=== PATIENT | female | born 1945 | race Caucasian/White ===

== ENCOUNTER → 2017-03-03 | Outpatient (CLI) | payer OTHER ==
[~2017-03-03] VITALS: Ht 160 cm; Wt 59.9 kg
[~2017-03-03] MED LIST: ALLEGRA180 MG PO; ASPIRIN EC81 M1 PO; ASPIRIN81 M2 PO; BIOTIN0.5 GM; CIPROFLOXACIN500 M1 PO; DOXYCYCLINE 10100 MG PO; FISH OIL 1,001000 M2 PO; FLAGYL500 MG PO; FLEXERIL PO; HAIR, SKIN & N1 EAC3 PO; LEVAQUIN 500 M500 M1 PO; LISINOPRIL20 MG PO; NORCO 5-325 TA1 EACH PO; OMEPRAZOLE 20 M20 M1 PO; PHILLIPS' COLO1 EACH PO; PREMARIN0.3 MG PO; RESTASIS1 EACH OPHTHALMIC; SIMVASTATIN40 MG PO; SPIRIVA INH; ULTRAM 50MG TAB50 MG PO; VENTOLIN HFA 1818 GM INH; ZOCOR 20 MG TAB20 M1 PO
--- NOTE | ~2017-03-03 | P ---
[facility] [place] [address] PROCEDURE REPORT Name: MIRELLA BRUNER Room #: REG [facility]#: [id number] Admission: 03/03/17 Attend Phys: Eric Kaiser Discharge: Date of : 47 Report #: [id number] THIS REPORT FOR: //name// CC: Eric Epps MD DATE OF SERVICE: 03/03/2017 PROCEDURE PERFORMED: Colonoscopy with biopsies. HISTORY OF PRESENT ILLNESS: The patient is a 71-year-old female with a history of mid epigastric abdominal pain. Upper endoscopy was just performed, which showed grade A erosive esophagitis with mild gastritis and a few gastric erosions. The patient has a history of colon polyps, last colonoscopy 2009. Plan is for colonoscopy. DESCRIPTION OF PROCEDURE: The risks and benefits of the procedure were explained to the patient, those risks including but not limited to bleeding, perforation, the risk of sedation. She understood these risks and gave informed consent. Sedation was given using propofol per anesthesia. Next, a digital rectal exam was initially performed, which was normal. Next, using a standard Gini.netinon colonoscope, the scope was placed in the patient's anus and advanced under direct vision to the cecum. The overall prep was good. The cecum and ileocecal valve were normal in appearance. The ascending, transverse and descending colon were normal. Multiple diverticula were noted in the sigmoid colon. Also noted were 2 small 3 mm sessile polyps, both removed with cold forceps. The rectal mucosa was normal. On retroflexion, no abnormalities were noted. The scope was then withdrawn and the procedure terminated. The patient tolerated the procedure well. IMPRESSION: 1. Two small colonic polyps. 2. Sigmoid diverticulosis. 3. Otherwise, normal colonoscopy. RECOMMENDATIONS: 1. Await biopsy results. 2. The patient had noted mild constipation complaints, I recommended a trial of daily MiraLax. [facility] [address] [place] [address] PROCEDURE REPORT Name: MIRELLA BRUNER Room #: [facility]#: [id number] Admission: 03/03/17 Attend Phys: Eric Kaiser Discharge: Date of : 47 Report #: [id number] Thank you for allowing me to participate in her care. By: [id number] Eric Fishman MD /nt
--- NOTE | ~2017-03-03 | P ---
[facility] [place] [address] PROCEDURE REPORT Name: MIRELLA BRUNER Room #: REG [facility]#: [id number] Admission: 03/03/17 Attend Phys: Eric Kaiser Discharge: Date of : 47 Report #: [id number] THIS REPORT FOR: //name// CC: Eric Epps MD DATE OF SERVICE: 03/03/2017 PROCEDURE PERFORMED: Upper endoscopy with biopsies. HISTORY OF PRESENT ILLNESS: The patient is a 71-year-old female with a history of mid epigastric abdominal pain, intermittent heartburn symptoms. She is scheduled for EGD and colonoscopy today. She also has some low crampy abdominal pain and history of polyps. She takes an aspirin on a regular basis. She began taking omeprazole 20 mg per trial basis for 10 days and did have some improvement in her symptoms. She denies any dysphagia or odynophagia. She denies any nausea or vomiting. DESCRIPTION OF PROCEDURE: The risks and benefits of the procedure were explained to the patient, those risks including but not limited to bleeding, perforation, the risk of sedation. She understood these risks and gave informed consent. Sedation was given using propofol per anesthesia. Next, using a standard Careemn upper endoscope, the scope was placed in the patient's mouth and advanced under direct vision through the esophagus, stomach and into the second portion of the duodenum. The upper and mid esophagus was normal in appearance. In the distal esophagus, there was evidence of grade A erosive esophagitis. Upon entering the stomach, a small hiatal hernia was noted. There was a mild gastritis noted in the distal body and antrum with several small no evidence of bleeding or ulceration. Biopsies were obtained to rule out H. pylori. The pylorus was normal and patent. The duodenal bulb, first and second portion were all normal. Random biopsies were also obtained to rule out the possibility of celiac sprue. The scope was then withdrawn and the procedure terminated. The patient tolerated the procedure well. IMPRESSION: 1. Mild grade A erosive esophagitis. 2. Small hiatal hernia. 3. Mild gastritis with several gastric erosions. 4. Otherwise, normal upper endoscopy. RECOMMENDATIONS: 1. Await biopsy results. 2. Would recommend daily PPI therapy. 3. We will proceed with colonoscopy next today. [address] [address] PROCEDURE REPORT Name: MIRELLA BRUNER Room #: REG [facility]#: [id number] Admission: 03/03/17 Attend Phys: Eric Kaiser Discharge: Date of : 47 Report #: [id number] Thank you for allowing me to participate in her care. By: [id number] [id number] Eric Fishman MD /nt
== END ==
LOC: GI 08:41
DX: D12.5 Benign neoplasm of sigmoid colon (principal); K21.0 Gastro-esophageal reflux disease with esophagitis; K22.10 Ulcer of esophagus without bleeding; K29.60 Other gastritis without bleeding; K57.30 Diverticulosis of large intestine without perforation or abscess without bleeding; I10 Essential (primary) hypertension; K25.9 Gastric ulcer, unspecified as acute or chronic, without hemorrhage or perforation; E11.9 Type 2 diabetes mellitus without complications; J43.9 Emphysema, unspecified; K44.9 Diaphragmatic hernia without obstruction or gangrene; Z87.891 Personal history of nicotine dependence
CPT/HCPCS: 62110; 62900

== ENCOUNTER 2017-06-08 06:10 | Emergency (ER) | payer OTHER ==
[~2017-06-08] VITALS: Ht 157.5 cm; Wt 60.3 kg
--- NOTE | ~2017-06-08 | EKG ---
[address] [place] [employer] [place] [address] ELECTROCARDIOGRAM REPORT Name: MIRELLA BRUNER Room #: [facility]#: [id number] Admission: 06/08/17 Attend Phys: Discharge: 06/08/17 Date of : 47 Report #: [id number] THIS REPORT FOR: //name// [facility] ED Test Date: 2017-06-08 Test Time: 07:16:59 Pat Name: MIRELLA BRUNER Department: Room: Gender: F Mobile Therapist: : 1945 Requested By: Jose Lopez Order Number: [id number] MD: Ken Lockhart Measurements Intervals [place] Rate: 106 P: 70 VT: 176 QRS: 28 QRSD: 72 T: 13 QT: 361 QTc: 480 Interpretive Statements Sinus tachycardia Nonspecific ST segment abnormality Compared to ECG 04/19/2011 07:21:58 T-wave abnormality now present Electronically Signed On 06-08-2017 17:56:08 CDT by Ken Lockhart [email or web address] <ELECTRONICALLY SIGNED> By: Ken Lockhart MD, [facility] 06/08/17 1756 0716 5 Ken Lockhart MD, [facility] /EPI
[2017-06-08 07:32] LABS: URINE BILIRUBIN NEGATIVE (Negative); URINE BLOOD TRACE (Negative); URINE COLOR YELLOW; URINE GLUCOSE-RANDOM* NEGATIVE (Negative); URINE KETONES NEGATIVE (Negative); URINE LEUKOCYTES-REFLEX NEGATIVE (Negative); URINE PROTEIN (DIPSTICK) NEGATIVE (Negative); URINE UROBILINOGEN 0.2 E.U./dl (0.2-1.0)
[2017-06-08 07:32] LABS: ABSOLUTE NEUTROPHILS 9.8 thou/uL (1.4-8.2); BASOPHILS 0.2 % (0.0-2.0); HEMATOCRIT 42.9 % (37.0-47.0); HEMOGLOBIN 14.9 gm/dL (12.0-15.0); LYMPHOCYTES 10.3 % (24.0-44.0); MCH 30.8 pg (26.0-34.0); MCHC 34.8 g/dL (28.0-37.0); MCV 88.5 fL (80.0-100.0); MONOCYTES 4.7 % (1.0-8.0); PLATELET COUNT 163 thou/uL (150-400); POLYS 84.8 % (36.0-66.0); RBC 4.84 mil/uL (4.20-5.00); RDW 12.8 % (10.5-14.5); WBC 11.5 thou/uL (4.0-11.0)
[2017-06-08 07:35] LABS: MANUAL DIFF NO
[2017-06-08 07:47] LABS: ANION GAP 8 mmol/L (7-16); BUN 14 mg/dL (7-18); CALCIUM 9.3 mg/dL (8.5-10.1); CHLORIDE 104 mmol/L (98-107); CO2 27 mmol/L (21-32); CREATININE 0.8 mg/dL (0.6-1.0); GLUCOSE 142 mg/dL (74-106); SODIUM 139 mmol/L (136-145)
[2017-06-08 07:56] LABS: ALBUMIN 3.8 g/dL (3.4-5.0); ALKALINE PHOSPHATASE 67 U/L (46-116); SGOT 27 U/L (15-37); SGPT 21 U/L (30-65); TOTAL BILIRUBIN 0.6 mg/dL (<0.1-1.0); TOTAL PROTEIN 7.4 g/dL (6.4-8.2); TROPONIN-I < 0.04 ng/mL (<0.04-0.07)
[2017-06-08] MEDS ORDERED: TRAMADOL 50 MG50 MG PO (08:18)
[2017-06-08] MEDS ORDERED: ZOFRAN ODT8 MG PO (08:18)
== END 2017-06-08 09:31 ==
LOC: ER 06:10
PROVIDERS: Emergency Medicine
DX: R11.2 Nausea with vomiting, unspecified (principal); R19.7 Diarrhea, unspecified; R10.30 Lower abdominal pain, unspecified; J44.9 Chronic obstructive pulmonary disease, unspecified; I10 Essential (primary) hypertension; E78.00 Pure hypercholesterolemia, unspecified; K21.9 Gastro-esophageal reflux disease without esophagitis; Z90.710 Acquired absence of both cervix and uterus; Z88.1 Allergy status to other antibiotic agents; Z88.6 Allergy status to analgesic agent

== ENCOUNTER 2017-06-08 19:22 | Inpatient (IN) | payer OTHER ==
[~2017-06-08] VITALS: Ht 157.5 cm; Wt 60.9 kg
--- NOTE | ~2017-06-08 | EKG ---
[address] [place] [address] ELECTROCARDIOGRAM REPORT Name: MIRELLA BRUNER Room #: 446-[facility] .R.#: [id number] Admission: 06/08/17 Attend Phys: Emil Smalls DO Discharge: 06/13/17 Date of : 47 Report #: [id number] THIS REPORT FOR: //name// [facility] Test Date: 2017-06-11 Test Time: 21:33:11 Pat Name: MIRELLA BRUNER Department: Room: 44[facility] Gender: F Cartridge Filler: Carisa STODDARD : 1945 Requested By: Yoselin Cantrell Order Number: [id number] MD: Ken Lockhart Measurements Intervals [place] Rate: 135 P: 83 WA: 156 QRS: 43 QRSD: 65 T: -58 QT: 283 QTc: 425 Interpretive Statements Sinus tachycardia Anteroseptal infarct, age indeterminate Nonspecific ST and T wave abnormality Compared to ECG 06/08/2017 07:16:59 Myocardial infarct finding now present nonspecific change in the ST and T-wave segments Electronically Signed On 06-14-2017 13:29:07 CDT by Ken Lockhart [email or web address] <ELECTRONICALLY SIGNED> By: Ken Lockhart MD, [facility] 06/14/17 1329 32 32 Ken Lockhart MD, [facility] /EPI
[~2017-06-08 19:22] MED LIST changes: +TRAMADOL 50 MG50 MG PO; +ZOFRAN ODT8 MG PO
[2017-06-08 19:23] VITALS: BP 202/108
[2017-06-08 20:00] LABS: HEMATOCRIT 40.6 % (37.0-47.0); HEMOGLOBIN 13.9 gm/dL (12.0-15.0); MCH 30.7 pg (26.0-34.0); MCHC 34.3 g/dL (28.0-37.0); MCV 89.5 fL (80.0-100.0); RBC 4.53 mil/uL (4.20-5.00); RDW 12.9 % (10.5-14.5); WBC 10.6 thou/uL (4.0-11.0)
[2017-06-08 20:10] LABS: CALCIUM 8.8 mg/dL (8.5-10.1); CREATININE 0.7 mg/dL (0.6-1.0); POTASSIUM 3.7 mmol/L (3.5-5.1)
[2017-06-08 20:16] LABS: ALBUMIN 3.6 g/dL (3.4-5.0); APTT 28.1 Seconds (24.5-32.8); PROTIME 10.1 Seconds (9.3-11.4); TOTAL BILIRUBIN 0.4 mg/dL (<0.1-1.0); TOTAL PROTEIN 6.9 g/dL (6.4-8.2)
[2017-06-08 21:55] VITALS: BP 168/90
[2017-06-08 22:22] VITALS: BP 186/98
[2017-06-08 22:30] VITALS: BP 156/76
[2017-06-09 05:15] VITALS: BP 141/72
[2017-06-09 06:15] LABS: MCHC 34.2 g/dL (28.0-37.0); MCV 90.7 fL (80.0-100.0); RBC 4.19 mil/uL (4.20-5.00); RDW 13.3 % (10.5-14.5); WBC 8.9 thou/uL (4.0-11.0)
[2017-06-09 06:43] LABS: CALCIUM 8.2 mg/dL (8.5-10.1); CREATININE 0.7 mg/dL (0.6-1.0)
[2017-06-09 07:40] VITALS: BP 147/74
[2017-06-09 15:23] VITALS: BP 141/78
[2017-06-09 20:19] VITALS: BP 161/84
[2017-06-10 04:36] VITALS: BP 145/61
[2017-06-10 05:36] LABS: ABSOLUTE NEUTROPHILS 5.1 thou/uL (1.4-8.2); BASOPHILS 0.6 % (0.0-2.0); EOSINOPHILS 1.9 % (0.0-3.0); HEMATOCRIT 34.6 % (37.0-47.0); HEMOGLOBIN 12.2 gm/dL (12.0-15.0); LYMPHOCYTES 26.1 % (24.0-44.0); MCH 31.4 pg (26.0-34.0); MCHC 35.3 g/dL (28.0-37.0); MCV 89.2 fL (80.0-100.0); MONOCYTES 7.7 % (1.0-8.0); PLATELET COUNT 138 thou/uL (150-400); POLYS 63.7 % (36.0-66.0); RBC 3.88 mil/uL (4.20-5.00); RDW 12.9 % (10.5-14.5); WBC 7.9 thou/uL (4.0-11.0)
[2017-06-10 05:40] LABS: MANUAL DIFF NO
[2017-06-10 05:43] LABS: CALCIUM 8.1 mg/dL (8.5-10.1); CREATININE 0.8 mg/dL (0.6-1.0); POTASSIUM 3.5 mmol/L (3.5-5.1)
[2017-06-10 08:17] VITALS: BP 129/75
[2017-06-10 13:36] VITALS: BP 152/77
[2017-06-10 16:17] VITALS: BP 157/63
[2017-06-10 19:40] VITALS: BP 161/95
[2017-06-11 04:25] VITALS: BP 163/80
[2017-06-11 09:31] VITALS: BP 169/84
[2017-06-11 16:06] VITALS: BP 182/89
[2017-06-11 20:38] VITALS: BP 193/93
[2017-06-12] VITALS (8 sets, daily range): BP systolic 137–204; BP diastolic 61–114
[2017-06-13] VITALS (7 sets, daily range): BP systolic 174–183; BP diastolic 95–112
== END 2017-06-13 16:44 | disposition home or self-care (01) | DRG 395 ==
LOC: ER 19:22 → 4S 21:28 → EROBS 21:28 → 4S 22:22
PROVIDERS: Emergency Medicine; Internal Medicine Gastroenterology; Internal Medicine Geriatric Medicine; Nurse Practitioner Family
PROC: 0DJD8ZZ Inspection of Lower Intestinal Tract, Via Natural or Artificial Opening Endoscopic (ICD-10-PCS; principal; 2017-06-09)
DX: K55.9 Vascular disorder of intestine, unspecified (principal); K21.0 Gastro-esophageal reflux disease with esophagitis; K25.9 Gastric ulcer, unspecified as acute or chronic, without hemorrhage or perforation; K29.70 Gastritis, unspecified, without bleeding; J44.9 Chronic obstructive pulmonary disease, unspecified; I10 Essential (primary) hypertension; E78.00 Pure hypercholesterolemia, unspecified; Z87.891 Personal history of nicotine dependence; Z90.710 Acquired absence of both cervix and uterus; Z88.1 Allergy status to other antibiotic agents; Z88.8 Allergy status to other drugs, medicaments and biological substances; Z82.5 Family history of asthma and other chronic lower respiratory diseases; Z83.3 Family history of diabetes mellitus; Z82.0 Family history of epilepsy and other diseases of the nervous system; Z80.6 Family history of leukemia
CPT/HCPCS: 10100

== ENCOUNTER → 2017-06-25 | Outpatient (CLI) | payer OTHER | LOC: ULTRA 11:33 | DX: I80.9 Phlebitis and thrombophlebitis of unspecified site (principal) ==

== ENCOUNTER → 2017-07-26 | Outpatient (CLI) | payer OTHER | LOC: RAD 09:45 | DX: Z12.31 Encounter for screening mammogram for malignant neoplasm of breast (principal) ==

== ENCOUNTER → 2018-08-04 | Outpatient (CLI) | payer OTHER | LOC: RAD 09:49 | DX: Z12.31 Encounter for screening mammogram for malignant neoplasm of breast (principal) ==

== ENCOUNTER → 2019-08-07 | Outpatient (CLI) | payer OTHER | LOC: BC 11:27 | DX: Z12.31 Encounter for screening mammogram for malignant neoplasm of breast (principal) ==

== ENCOUNTER → 2020-08-06 | Outpatient (CLI) | payer OTHER | LOC: RAD 14:10 | PROVIDERS: ATTEND Internal Medicine | DX: Z12.31 Encounter for screening mammogram for malignant neoplasm of breast (principal) ==

== ENCOUNTER → 2021-04-04 | Outpatient (CLI) | payer OTHER | LOC: ULTRA 09:16 | PROVIDERS: ATTEND Internal Medicine | DX: N64.89 Other specified disorders of breast (principal) ==

== ENCOUNTER → 2021-09-10 | Outpatient (CLI) | payer OTHER | LOC: ULTRA 09:15 | PROVIDERS: ATTEND Internal Medicine | DX: R92.8 Other abnormal and inconclusive findings on diagnostic imaging of breast (principal); N64.89 Other specified disorders of breast ==